=== PATIENT | female | born 1965 | race Caucasian/White ===

== ENCOUNTER → 2022-11-06 14:21 | Outpatient (CLI) | payer OTHER, MEDICAID, SELFPAY ==
--- NOTE | 2022-11-06 14:23 | DI.RAD.S_ITS ---
PROCEDURE: XR KNEE LT 3V INDICATIONS: bilateral knee and right shoulder pain TECHNIQUE: 3 views of the knee were acquired. COMPARISON: None. FINDINGS: Bones: No fractures or dislocations. Mild tricompartmental osteoarthritis is seen with joint space narrowing and subchondral sclerosis. No patellar subluxation. No suspicious bony lesions. Soft tissues: No joint effusion. No suspicious soft tissue calcifications. IMPRESSION: Mild tricompartmental osteoarthritis. No fracture or dislocation. No significant joint effusion. Dictated by: Corky Bulm M.D. on 11/06/2022 at 16:39 Approved by: Corky Blum M.D. on 11/06/2022 at 16:40
--- NOTE | 2022-11-06 14:23 | DI.RAD.S_ITS ---
PROCEDURE: XR SHOULDER RT MIN 2V INDICATIONS: bilateral knee and right shoulder pain TECHNIQUE: 3 views of the shoulder were acquired. COMPARISON: None. FINDINGS: Bones: No fractures or dislocations. Bqug-xo-ttjssdyh osteoarthritic changes are noted in acromioclavicular joint and glenohumeral joint with joint space narrowing and subchondral sclerosis. No suspicious bony lesions. Visualized ribs appear intact. Soft tissues: No suspicious soft tissue calcifications. IMPRESSION: Mild to moderate right shoulder joint osteoarthritis. No fracture or dislocation. No gross soft tissue abnormalities. Dictated by: Corky Blum M.D. on 11/06/2022 at 16:40 Approved by: Corky Blum M.D. on 11/06/2022 at 16:41
--- NOTE | 2022-11-06 14:23 | DI.RAD.S_ITS ---
PROCEDURE: XR KNEE RT 3V INDICATIONS: bilateral knee and right shoulder pain TECHNIQUE: 3 views of the knee were acquired. COMPARISON: None. FINDINGS: Bones: No fractures or dislocations. Mild tricompartmental osteoarthritis is seen more notably in medial femoral tibial compartment. No patellar subluxation. No suspicious bony lesions. Soft tissues: No joint effusion. No suspicious soft tissue calcifications. IMPRESSION: Mild tricompartmental osteoarthritis. No fracture or dislocation. No significant joint effusion. Dictated by: Corky Blum M.D. on 11/06/2022 at 16:39 Approved by: Corky Blum M.D. on 11/06/2022 at 16:39
== END ==
PROVIDERS: PCP Family Medicine; Referring Provider Family Medicine; Visit Provider Family Medicine
DX: M17.0 Bilateral primary osteoarthritis of knee (principal); M19.011 Primary osteoarthritis, right shoulder; M25.561 Pain in right knee; M25.562 Pain in left knee; M25.519 Pain in unspecified shoulder
CPT/HCPCS: 73030; 73562

== ENCOUNTER → 2023-05-19 13:44 | Outpatient (CLI) | payer OTHER, MEDICAID, SELFPAY ==
--- NOTE | 2023-05-19 14:17 | DI.RAD.S_ITS ---
PROCEDURE: XR LUMBAR SPINE 2-3V INDICATIONS: chronic spine pain TECHNIQUE: 3 views of the lumbar spine were acquired. COMPARISON: [facility], CT, CT ABDOMEN PELVIS WITH CONTRAST, 05/10/2018, 15:46. [facility], CR, XR LUMBAR SPINE WITH FLEXION EXTENSION 5 VIEWS, 05/17/2021, 13:27. FINDINGS: Bones: 5 ilp-rqo-jwnzzlb vertebrae are present. There is grade 1 anterolisthesis of L5 on S1 secondary to pars defects. No vertebral body compression fractures. No suspicious bony lesions. Degenerative disc disease, moderate at L5-S1, mild at other levels. There is moderate facet arthropathy at L4-L5 and L5-S1. Soft tissues: Overlying bowel gas pattern is normal. Atherosclerotic calcifications. IMPRESSION: 1. Multilevel degenerative disc and facet disease in lumbar spine. 2. Grade 1 anterolisthesis of L5 on S1 secondary to L5 pars defects. Dictated by: Mira Blanchard M.D. on 05/19/2023 at 15:16 Approved by: Mira Blanchard M.D. on 05/19/2023 at 15:21
--- NOTE | 2023-05-19 14:17 | DI.RAD.S_ITS ---
PROCEDURE: XR CERVICAL SPINE 2V OR 3V INDICATIONS: chronic spine pain TECHNIQUE: 3 view(s) of the cervical spine were acquired. COMPARISON: [facility], CR, XR CERVICAL SPINE FLEXION EXTENSION 3 VIEWS, 12/13/2021, 12:14. FINDINGS: Bones: No fractures or dislocations to the T7 level. The lateral masses of C1 appear intact on the odontoid view. No suspicious bony lesions. Discectomy and anterior fusion at C6-C7. Degenerative disc disease is present, moderate at C5-C6, and mild at other levels. Moderate bilateral facet arthropathy at C3-C4 and C4-C5 on the left. Soft tissues: No prevertebral soft tissue swelling. IMPRESSION: 1. Degenerative disc disease and facet arthropathy in cervical spine as described. 2. Discectomy and anterior fusion at C6-C7. Dictated by: Mira Blanchard M.D. on 05/19/2023 at 15:22 Approved by: Mira Blanchard M.D. on 05/19/2023 at 15:25
[2023-05-19 15:15] LABS: Add Manual Diff / Slide Review NO; Basophils Absolute Auto 0 /uL (0-100); Basophils Percent Auto 0.5 % (0-2); Eosinophils Absolute Auto 100 /uL (0-450); Eosinophils Percent Auto 1.7 % (2-4); Hematocrit 39.8 % (36-46); Hemoglobin 13.5 g/dL (12.0-16.0); Lymphocytes Absolute Auto 1700 /uL (1100-4500); Lymphocytes Percent Auto 22.7 % (25-40); Mean Corpuscular HGB Conc 33.9 % (30-36); Mean Corpuscular Hemoglobin 31.7 PG (26-34); Mean Corpuscular Volume 93.7 fL (80-100); Monocytes Absolute Auto 400 /uL (0-900); Monocytes Percent Auto 5.5 % (3-14); Neutrophils Absolute Auto 5100 /uL (1500-7000); Neutrophils Percent Auto 69.6 % (50-75); Platelet Count 160 X10^3/uL (150-400); Red Blood Cell Count 4.25 X10^6/uL (4.0-5.2); Red Cell Distribution Width 13.9 % (11.6-14.8); White Blood Cell Count 7.4 X10^3/uL (4.5-11.0)
[2023-05-19 15:43] LABS: Alanine Aminotransferase 15 IU/L (<35); Albumin 3.9 g/dL (3.5-5.0); Albumin Globulin Ratio 1.7 (1.0-2.8); Alkaline Phosphatase 50 U/L (38-126); Aspartate Aminotransferase 24 IU/L (14-36); Bilirubin Total 0.2 mg/dL (0.2-1.3); Blood Urea Nitrogen 13 mg/dL (7-17); Calcium 8.8 mg/dL (8.4-10.2); Carbon Dioxide 29 mmol/L (22-32); Chloride 103 mmol/L (98-107); Cholesterol 227 mg/dL (140-199); Estimated Glomerular Filt Rate > 60 mL/min (>60); Globulin 2.3 g/dL (1.7-4.1); Glucose 99 mg/dL (80-110); HDL Cholesterol 56 mg/dL (40-60); HEMOLYSIS < 15 (0-50); Potassium 4.3 mmol/L (3.4-5.1); Sodium 139 mmol/L (137-145); Total Protein 6.2 g/dL (6.3-8.2); Triglycerides 403 mg/dL (35-150)
[2023-05-19 16:05] LABS: TSH w/ Reflex to FT4 < 0.02 uIU/mL (0.47-4.68)
[2023-05-19 17:18] LABS: Free T4, Direct Thyroxine 1.18 ng/dL (0.78-2.19)
== END ==
PROVIDERS: PCP Family Medicine; Referring Provider Family Medicine; Visit Provider Family Medicine
DX: E03.9 Hypothyroidism, unspecified (principal); F17.200 Nicotine dependence, unspecified, uncomplicated; F32.A Depression, unspecified; F41.9 Anxiety disorder, unspecified; G89.29 Other chronic pain; G89.4 Chronic pain syndrome; J44.9 Chronic obstructive pulmonary disease, unspecified; M54.2 Cervicalgia; M54.9 Dorsalgia, unspecified; Z98.1 Arthrodesis status; F17.210 Nicotine dependence, cigarettes, uncomplicated; F31.9 Bipolar disorder, unspecified
CPT/HCPCS: 36415; 72040; 72100; 80053; 80061; 80305; 84439; 84443; 85025

== ENCOUNTER → 2023-07-04 13:48 | Outpatient (CLI) | payer OTHER, MEDICAID, SELFPAY ==
--- NOTE | 2023-07-04 13:50 | DI.MRI.S_ITS ---
PROCEDURE: MR LUMBAR SPINE WO CON INDICATIONS: Lumbar radiculopathy TECHNIQUE: Noncontrast sagittal T1 spin echo and T2 fast echo, sagittal STIR, and T2 fast spin echo through the lumbar spine. In cases with scoliosis, additional coronal T2 fast spin echo may be performed. COMPARISON: None. FINDINGS: Image quality: Excellent. Alignment and Curvature: Grade 1 anterolisthesis of L5 on S1. Bone Marrow: Partial ankylosis of the L5 and S1 vertebral bodies. Marrow is of normal overall signal. No acute vertebral body compression fractures. Spinal Cord: Conus medullaris terminates at the L1 level. Visualized cord demonstrates normal signal and size. Paraspinous Soft Tissues: No paravertebral masses. T12-L1: No central canal or neural foraminal stenosis. L1-L2: No central canal or neural foraminal stenosis. L2-L3: No central canal or neural foraminal stenosis. L3-L4: Disc desiccation. Minimal posterior disc bulge. Facet arthropathy and thickening of the ligamentum flavum. No central canal or neural foraminal stenosis. L4-L5: Disc desiccation. Facet arthropathy and thickening of the ligamentum flavum. No central canal or neural foraminal stenosis. L5-S1: Severe disc height loss and partial ankylosis of the L5 and S1 vertebral bodies. Facet arthropathy. Mild bilateral neural foraminal stenosis. No central canal stenosis. IMPRESSION: 1. Mild multilevel degenerative changes of the lumbar spine with grade 1 anterolisthesis of L5-S1 and partial ankylosis of the L5 and S1 vertebral bodies. 2. There is mild bilateral neural foraminal stenosis at L5-S1. 3. Otherwise, the central canal and neural are patent. Dictated by: Ney Patterson M.D. on 07/06/2023 at 9:54 Approved by: Ney Patterson M.D. on 07/06/2023 at 9:57
--- NOTE | 2023-07-04 13:50 | DI.MRI.S_ITS ---
PROCEDURE: MR CERVICAL SPINE WO CON INDICATIONS: Cervical radiculopathy, s/p ACDF TECHNIQUE: Noncontrast sagittal T1 spin echo and T2 fast spin echo, sagittal STIR, foraminal oblique sagittal T2 fast spin echo, and axial gradient echo or T2 fast spin echo through the cervical spine. COMPARISON: None. FINDINGS: Image quality: Excellent. Alignment and Curvature: There is normal bony alignment. Bone Marrow: Status post C6-C7 ACDF. Marrow demonstrates normal overall signal. Spinal Cord: Visualized spinal cord has normal size and signal. No cerebellar tonsillar herniation. Paraspinous Soft Tissues: No paravertebral masses. Prevertebral soft tissues are normal in thickness. C2-C3: Disc desiccation and minimal posterior disc bulge. No central canal or neural foraminal stenosis. C3-C4: Disc desiccation. No central canal stenosis. Facet and uncovertebral arthropathy. Mild left neural foraminal stenosis. No right neural foraminal stenosis. C4-C5: Disc desiccation and height loss with small central protrusion abutting the ventral cord. Mild central canal stenosis. Facet and uncovertebral arthropathy. Mild bilateral neural foraminal stenosis. C5-C6: Disc desiccation and height loss. No central canal stenosis. Facet and uncovertebral arthropathy. Moderate right and mild left neural foraminal stenosis. C6-C7: ACDF. No central canal stenosis. Facet and uncovertebral arthropathy. Mild left neural foraminal stenosis. No right neural foraminal stenosis. C7-T1: No central canal or neural foraminal stenosis. IMPRESSION: 1. Multilevel degenerative changes of the cervical spine status post C6-C7 ACDF. 2. Mild central canal stenosis at C4-C5. Otherwise, the central canal is patent. 3. Moderate right neural foraminal stenosis at C5-C6. Additional levels of mild neural foraminal stenosis as described above. Dictated by: Ney Patterson M.D. on 07/06/2023 at 9:48 Approved by: Ney Patterson M.D. on 07/06/2023 at 9:53
== END ==
PROVIDERS: PCP Family Medicine; Referring Provider Anesthesiology; Visit Provider Anesthesiology
DX: M54.12 Radiculopathy, cervical region (principal); Z98.1 Arthrodesis status; M54.9 Dorsalgia, unspecified; G89.29 Other chronic pain; M54.16 Radiculopathy, lumbar region; M43.16 Spondylolisthesis, lumbar region; M43.26 Fusion of spine, lumbar region; M48.061 Spinal stenosis, lumbar region without neurogenic claudication; M48.02 Spinal stenosis, cervical region
CPT/HCPCS: 72141; 72148

== ENCOUNTER 2023-09-09 13:39 | Outpatient (CLI) | payer OTHER, MEDICAID, SELFPAY ==
[2023-09-09] VITALS (9 sets, daily range): BP systolic 105–144; BP diastolic 73–87; PULSE 85–91; RESP 14–20; TEMP 35.8; O2SAT 94–100
[2023-09-09] MEDS: MIDAZOLAM 2 MG/2 ML VIAL 1 MG IV ×2 (14:23→14:25)
[2023-09-09] MEDS: DEXAMETHASONE 10 MG/ML VIAL INJ (14:27)
[2023-09-09] MEDS: iopamidoL 15 ML VIAL 3 ML INJ (14:28)
--- NOTE | 2023-09-09 14:30 | DI.RAD.S_ITS ---
PROCEDURE: PAIN C/T INTERLAMINAR INJECT INDICATIONS: Radiculopathy COMPARISON: None. FINDINGS: Fluoroscopic spot filming was performed to verify placement of spinal needles at the C7-T1 level(s), as labeled on the films. Appropriate location(s) of the needle tip(s) was confirmed by injection of iodinated contrast. IMPRESSION: Fluoroscopic guidance utilized for an epidural steroid injection at C7-T1. Dictated by: Ke Su M.D. on 09/09/2023 at 16:41 Approved by: Ke Su M.D. on 09/09/2023 at 16:42
--- NOTE | 2023-09-09 15:11 | DI.CT.S_ITS ---
PROCEDURE: CT LUNG LOW DOSE SCREENING INDICATIONS: smoking hx TECHNIQUE: Noncontrast 2.0-2.5 mm thick sections acquired from the pulmonary apices to the posterior costophrenic angles. 7 mm thick axial MIP, and 5 mm coronal and sagittal reformats were then acquired. For radiation dose reduction, the following was used: automated exposure control, adjustment of mA and/or kV according to patient size. COMPARISON: [facility], CT, CT ANGIO CHEST PE, 04/13/2019, 22:16. FINDINGS: Image quality: Diagnostic, given the low radiation dose technique. Lungs and pleura: There is mild centrilobular emphysema with an apical predominance. A spiculated mass within the right upper lobe which measures 1.5 x 0.8 cm is unchanged from the study dated April 13, 2019 and suggests pulmonary scarring. Atelectasis is present in the dependent portions of the right middle lobe. Platelike atelectasis or scar is redemonstrated at the left lung base. Mediastinum: Heart size is normal. No pericardial effusion. No mediastinal adenopathy by size criteria. Thoracic aorta and central pulmonary arteries are normal in size. Scattered atheromatous calcifications are present within the aortic arch. Esophagus is normal in caliber. No hiatal hernia. Bones and chest wall: No suspicious bony lesions. No vertebral body compression fractures. No axillary or supraclavicular adenopathy by size criteria. No thyroid nodules which require sonographic follow up, per consensus guidelines. Upper Abdomen: Visualized upper abdomen solid organs and bowel loops appear normal in the absence of contrast. IMPRESSION: 1. Stable pulmonary nodule within the right upper lobe when compared with the 2019 study. No new suspicious pulmonary nodules or acute airspace opacities. LUNG-RADS 2; continued annual screening, if eligible. Clinically Significant Non-pulmonary Findings: None. Dictated by: Erendira Gavin M.D. on 09/09/2023 at 15:49 Approved by: Erendira Gavin M.D. on 09/09/2023 at 15:53
--- NOTE | 2023-09-09 16:43 | P.PCN_ITS ---
Date/Time/Diagnoses Date of procedure: 09/09/23 Time of procedure: 14:30 Procedure Notes Physician: Renard Stockton Total Fluoroscopy time (seconds): 15 Total sedation minutes: 11 Procedure in detail & Post-procedure care: T1-2 Interlaminar Epidural Steroid Injection Indications: Esperanza is presenting for treatment of cervical radiculopathy with neck and arm pain. Decision made to perform the injection at the T1-2 level as opposed to the original order C7-T1 due to inability to visualize that space due to cervical fusion hardware. Preoperative diagnosis: Cervical radiculopathy Postoperative diagnosis: Same Focused Examination: Ax3 Mood and affect are normal Vital Signs: VSS ASA: 2 Consent: Following review of allergies and potential side effects/complications, including, but not necessarily limited to, infection, allergic reaction, local tissue breakdown, stroke, temporary or permanent nerve injury, paralysis, and possible , the patient indicated that they understood and agreed to proceed.? An informed consent document was signed by the patient, witnessed by a nurse and placed in the patient's chart.? Additionally, other treatment options including medications and physical therapy were reviewed with the patient. All questions were answered. Site was then marked. Anesthesia: After review of previous anesthetic history and IV conscious sedation, the patient was deemed safe to proceed with today's procedure with IV conscious sedation. IV sedation was accomplished with midazolam 2 mg administered by the RN after physician order. Sedation was titrated to patient comfort during the course of the procedure. Patient remained responsive to all verbal commands. Position: Prone Monitoring: NIBP, Pulse oximetry, 3 lead EKG Needle used: 18 G 3.5? Tuohy Contrast: Isovue 300-M 2 mL Injectate: Dexamethasone 10 mg followed by Normal Saline 2 mL Technique: The skin was prepped with chloraprep and then draped in a sterile fashion. Time out was performed as per protocol. Oxygen applied via NC. Skin and subcutaneous structures of the needle entry site was then infiltrated with 3 mL of lidocaine 1%. Under AP, lateral and contralateral oblique fluoroscopic control, the Tuohy needle was guided into the T1-2 epidural space. The space was accessed with loss of resistance technique. Isovue 300-M was then injected and the spread was consistent with the epidural space. There was no evidence for intravascular or intrathecal uptake. After negative aspiration, the above- mentioned injectate was then slowly administered and the needle withdrawn. The patient expressed no unusual discomfort or paresthesias during the injection. Band-Aids applied to injection sites. EBL: less than 1 ml Complications: None Post Procedure: Patient was taken to the recovery and monitored. The patient was provided a Pain Log to continue to record the patient's response to the target- specific procedure prior to the patient's follow-up visit with the referring physician. Patient was stable upon discharge. Detailed post procedure instructions were provided. Patient was asked to call in the event of worsening pain, fever, weakness, numbness or bladder or bowel incontinence.
== END 2023-09-09 15:01 | disposition home or self-care (01) ==
LOC: RAD 13:40
PROVIDERS: PCP Family Medicine; Referring Provider Anesthesiology; Visit Provider Anesthesiology
DX: M54.12 Radiculopathy, cervical region (principal); Z98.1 Arthrodesis status; Z12.2 Encounter for screening for malignant neoplasm of respiratory organs; R91.1 Solitary pulmonary nodule; F17.210 Nicotine dependence, cigarettes, uncomplicated
CPT/HCPCS: 62321; 71271; 99152; J1100; J2250

== ENCOUNTER → 2024-01-08 08:40 | Outpatient (CLI) | payer OTHER, MEDICAID, SELFPAY ==
--- NOTE | 2024-01-08 | DI.RAD.S_ITS ---
PROCEDURE: XR HIP W PEL IF DONE GWYN MIN 4V INDICATIONS: HIP PAIN TECHNIQUE: AP pelvis with lateral view(s) of each hip(s). COMPARISON: [facility], CR, XR PELVIS WITH BILATERAL LATERAL HIPS, 12/13/2021, 12:14. FINDINGS: Bones: No fractures or dislocations. Pelvic ring appears intact. No suspicious bony lesions. Mild symmetrical hip and sacroiliac joint degeneration bilaterally. Soft tissues: The visualized bowel gas pattern is normal. No suspicious soft tissue calcifications. There multiple surgical clips in pelvis. IMPRESSION: 1. No acute bony abnormality. 2. Mild degenerative joint disease. Dictated by: Mira Blanchard M.D. on 01/08/2024 at 10:55 Approved by: Mira Blanchard M.D. on 01/08/2024 at 10:58
[2024-01-08 09:58] LABS: Add Manual Diff / Slide Review NO; Basophils Absolute Auto 0 /uL (0-100); Basophils Percent Auto 0.6 % (0-2); Eosinophils Absolute Auto 100 /uL (0-450); Eosinophils Percent Auto 1.8 % (2-4); Hematocrit 41.1 % (36-46); Hemoglobin 13.6 g/dL (12.0-16.0); Lymphocytes Absolute Auto 1600 /uL (1100-4500); Lymphocytes Percent Auto 24.2 % (25-40); Mean Corpuscular HGB Conc 33.2 % (30-36); Mean Corpuscular Volume 96.4 fL (80-100); Monocytes Absolute Auto 500 /uL (0-900); Monocytes Percent Auto 7.4 % (3-14); Neutrophils Absolute Auto 4400 /uL (1500-7000); Platelet Count 138 X10^3/uL (150-400); Red Blood Cell Count 4.26 X10^6/uL (4.0-5.2); Red Cell Distribution Width 12.9 % (11.6-14.8); White Blood Cell Count 6.7 X10^3/uL (4.5-11.0)
[2024-01-08 10:30] LABS: Alanine Aminotransferase 19 IU/L (<35); Albumin 4.3 g/dL (3.5-5.0); Albumin Globulin Ratio 2.2 (1.0-2.8); Alkaline Phosphatase 57 U/L (38-126); Aspartate Aminotransferase 30 IU/L (14-36); BUN Creatinine Ratio 41.4 (6-22); Bilirubin Total 0.4 mg/dL (0.2-1.3); Blood Urea Nitrogen 24 mg/dL (7-17); Calcium 9.2 mg/dL (8.4-10.2); Carbon Dioxide 31 mmol/L (22-32); Chloride 106 mmol/L (98-107); Cholesterol 174 mg/dL (140-199); Estimated Glomerular Filt Rate > 60 mL/min (>60); Glucose 92 mg/dL (80-110); HDL Cholesterol 66 mg/dL (40-60); HEMOLYSIS < 15 (0-50); LDL Cholesterol Calculated 45 mg/dL (<100); Potassium 4.5 mmol/L (3.4-5.1); Sodium 141 mmol/L (137-145); Total Protein 6.3 g/dL (6.3-8.2); Triglycerides 313 mg/dL (35-150)
[2024-01-08 10:58] LABS: TSH w/ Reflex to FT4 2.54 uIU/mL (0.47-4.68)
[2024-01-08 11:08] LABS: Hep C Virus Ab w/Reflex Quant NEGATIVE s/c (NEGATIVE)
[2024-01-10 09:10] LABS: Apolipoprotein B 88 mg/dL (<90)
== END ==
PROVIDERS: PCP Family Medicine; Referring Provider Family Medicine; Visit Provider Family Medicine
DX: E78.1 Pure hyperglyceridemia (principal); E03.9 Hypothyroidism, unspecified; J44.9 Chronic obstructive pulmonary disease, unspecified; E78.5 Hyperlipidemia, unspecified; G89.4 Chronic pain syndrome; Z98.1 Arthrodesis status; F17.200 Nicotine dependence, unspecified, uncomplicated; M54.9 Dorsalgia, unspecified; G89.29 Other chronic pain; M54.2 Cervicalgia; M16.0 Bilateral primary osteoarthritis of hip
CPT/HCPCS: 36415; 73522; 80053; 80061; 82172; 84443; 85025; 86803

== ENCOUNTER → 2025-01-11 12:46 | Outpatient (CLI) | payer OTHER, SELFPAY ==
--- NOTE | 2025-01-11 13:07 | DI.MRI.S_ITS ---
PROCEDURE: MR HEAD/BRAIN WO/W CON INDICATIONS: short term memory loss TECHNIQUE: Noncontrast axial T1 spin echo, axial T2 fast spin echo, sagittal and axial FLAIR, coronal T2 fast spin echo, axial gradient echo, axial diffusion and ADC through the brain. After the administration of contrast, axial and coronal and sagittal T1 spin echo with fat saturation through the brain. COMPARISON: None. FINDINGS: Image quality: This examination is limited by involuntary motion artifact. CSF spaces: Basal cisterns are patent. No extra-axial fluid collections. Ventricles are normal in size and shape. Brain: Fvcw-sy-lzjhxspg generalized brain parenchymal volume loss is seen, without focal abnormal regional brain parenchymal volume loss. Idlo-ha-tmllwbor chronic small vessel ischemic change can be seen. No midline shift. No intracranial bleeds or masses. No abnormal intracranial enhancement. The brainstem appears normal. Diffusion-weighted images demonstrate no acute infarct. There is a remote infarct seen involving the deep white matter of the left frontal lobe, continuing into the left basal ganglia.. Normal intravascular flow voids are present. Skull and face: Calvarial marrow is normal in signal. Orbits appear normal. Incidental note is made of hyperostosis frontalis. This is not considered to be pathologic in a woman of this age. Sinuses: Sinuses and mastoids appear clear. IMPRESSION: Brain parenchymal volume loss and chronic small vessel ischemic change can be seen, which are somewhat worse than would be expected for a patient of this age. No findings of acute or subacute infarction can be seen. Remote infarct seen involving the deep white matter of the left frontal lobe, continuing into the left basal ganglia. No masses or abnormal enhancement can be seen. Dictated by: Ziggy Sykes M.D. on 01/14/2025 at 11:38 Approved by: Ziggy Sykes M.D. on 01/14/2025 at 11:40
== END ==
PROVIDERS: PCP Family Medicine; Referring Provider Family Medicine; Visit Provider Family Medicine
DX: R41.3 Other amnesia (principal); E03.9 Hypothyroidism, unspecified; M54.2 Cervicalgia; M54.9 Dorsalgia, unspecified; F17.200 Nicotine dependence, unspecified, uncomplicated; G89.4 Chronic pain syndrome
CPT/HCPCS: 70553; A9579

== ENCOUNTER → 2025-01-31 16:59 | Outpatient (CLI) | payer OTHER, SELFPAY ==
[2025-01-31 17:59] LABS: Add Manual Diff / Slide Review NO; Basophils Absolute Auto 0 /uL (0-100); Basophils Percent Auto 0.5 % (0-2); Eosinophils Absolute Auto 200 /uL (0-450); Eosinophils Percent Auto 2.4 % (2-4); Hematocrit 40.8 % (36-46); Hemoglobin 13.5 g/dL (12.0-16.0); Lymphocytes Absolute Auto 1700 /uL (1100-4500); Lymphocytes Percent Auto 25.5 % (25-40); Mean Corpuscular Hemoglobin 31.1 PG (26-34); Mean Corpuscular Volume 94.2 fL (80-100); Monocytes Absolute Auto 400 /uL (0-900); Monocytes Percent Auto 6.2 % (3-14); Neutrophils Absolute Auto 4400 /uL (1500-7000); Neutrophils Percent Auto 65.4 % (50-75); Platelet Count 147 X10^3/uL (150-400); Red Blood Cell Count 4.34 X10^6/uL (4.0-5.2); Red Cell Distribution Width 13.7 % (11.6-14.8); White Blood Cell Count 6.8 X10^3/uL (4.5-11.0)
[2025-01-31 18:28] LABS: Alanine Aminotransferase 21 IU/L (<35); Albumin 4.2 g/dL (3.5-5.0); Albumin Globulin Ratio 1.7 (1.0-2.8); Alkaline Phosphatase 65 U/L (38-126); Aspartate Aminotransferase 32 IU/L (14-36); BUN Creatinine Ratio 23.3 (6-22); Bilirubin Total 0.3 mg/dL (0.2-1.3); Blood Urea Nitrogen 14 mg/dL (7-17); Calcium 9.3 mg/dL (8.4-10.2); Carbon Dioxide 31 mmol/L (22-32); Chloride 101 mmol/L (98-107); Estimated Glomerular Filt Rate > 60 mL/min (>60); Globulin 2.5 g/dL (1.7-4.1); Glucose 94 mg/dL (70-99); HEMOLYSIS < 15 (0-50); Potassium 4.4 mmol/L (3.4-5.1); Sodium 138 mmol/L (137-145); Total Protein 6.7 g/dL (6.3-8.2)
[2025-01-31 19:05] LABS: Vitamin B12 915 pg/mL (239-931)
== END ==
PROVIDERS: PCP Family Medicine; Referring Provider Family Medicine; Visit Provider Family Medicine
DX: R41.3 Other amnesia (principal); E03.9 Hypothyroidism, unspecified; G89.4 Chronic pain syndrome; F17.200 Nicotine dependence, unspecified, uncomplicated; M54.9 Dorsalgia, unspecified; G89.29 Other chronic pain; M54.2 Cervicalgia
CPT/HCPCS: 36415; 80053; 82607; 84443; 85025

== ENCOUNTER → 2025-02-09 13:57 | Outpatient (CLI) | payer OTHER, SELFPAY ==
--- NOTE | 2025-02-09 13:58 | DI.US.S_ITS ---
PROCEDURE: US CAROTID DOPPLER BI INDICATIONS: history of stroke on MRI TECHNIQUE: Color and pulse Doppler interrogation was performed of both carotid systems, with image documentation and velocity measurements. COMPARISON: [facility], MR, MR HEAD/BRAIN WO/W CON, 01/11/2025, 12:58. FINDINGS: Stenosis calculations are based on SRU (Society of Radiologists in Ultrasound) criteria. The flow velocities and the arterial waveforms are normal within both carotid arterial systems. Mild atherosclerotic plaque is seen on both sides. The estimated degree of internal carotid artery stenosis is less than 50%. Antegrade flow is confirmed within both vertebral arteries. IMPRESSION: No hemodynamically significant stenosis is seen. Mild atherosclerotic plaque is noted bilaterally. Dictated by: Ziggy Sykes M.D. on 02/09/2025 at 14:26 Approved by: Ziggy Sykes M.D. on 02/09/2025 at 14:27
--- NOTE | 2025-02-09 13:58 | DI.ECHO.S_ITS ---
[facility] : : [id number] : [place] : : [id number] : : Phone: [phone] Echocardiogram Report + + :Name: JACKLYN SARGENT Study Date: 02/09/2025 Height: 61 in : [facility] ReadingLocation: Weight: 135 lb : : Gender: Female BSA: 1.6 m2 : :: 1965 Age: 59 yrs BP: 122/80 mmHg: :Reason For Study: STROKE : :Ordering Physician: CAMMIE, : :KADIE Performed By: Bernardo Sawant : :Referring: KADEI BONDS : + + Interpretation Summary 1) Normal left ventricular thickness, size, wall motion, and systolic function (EF 60-65%). 2) Normal right ventricular size and function. 3) No significant valvular abnormalities. 4) Injection of contrast documented no interatrial shunt. 5) Compared to the Echo done 04/14/2019, no significant change. Procedure: A two-dimensional transthoracic echocardiogram with color flow and Doppler was performed. A saline contrast injection was performed to assess for cardiac shunting. The study quality was technically good. Comparison is made with the echocardiogram of 04/14/2019. The patient was in normal sinus rhythm during the exam. Left Ventricle: The left ventricle is normal in size. There is normal left ventricular wall thickness. There is no ventricular septal defect visualized. The ejection fraction is estimated to be 60-65%. There are no focal wall motion abnormalities. Diastolic parameters suggest probable normal left ventricular diastolic function and normal filling pressures. Right Ventricle: The right ventricle is normal in size and function. Atria: The left atrial size is normal. Right atrial size is normal. There is no Doppler evidence for an interatrial shunt. Injection of contrast documented no interatrial shunt. Mitral Valve: The mitral valve leaflets appear normal. There is no evidence of stenosis, fluttering, or prolapse. There is trace mitral regurgitation. Aortic Valve: The aortic valve is mildly calcified. The aortic valve opens well. There is no aortic valve stenosis. No aortic regurgitation is present. Tricuspid Valve: The tricuspid valve leaflets are thin and pliable. No tricuspid regurgitation. Pulmonic Valve: The pulmonic valve leaflets are thin and pliable; valve motion is normal. There is no pulmonic valvular regurgitation. Great Vessels: The aortic root is normal size. The ascending aorta is at the upper limits of normal in size. The pulmonary artery is normal size. The IVC is of normal diameter and collapses greater than 50% with a sniff. This suggests a low right atrial pressure of 3 mm Hg. Pericardium/ Pleura There is no pericardial effusion. There is no pleural effusion. MMode/2D Measurements & Calculations LVIDd: 3.9 cm LVOT diam: 1.9 cm LVIDs: 2.9 cm Ao root diam: 3.3 cm FS: 26.8 % asc Aorta Diam: 3.3 cm EPSS: 0.55 cm Ao Arch Diam (Prox Trans): 1.6 cm IVSd: 0.93 cm LVPWd: 1.0 cm LV saul. diameter/BSA (cm/m^2): 2.4 LV sys. diameter/BSA (cm/m^2): 1.8 LA A2 area: 14.8 cm2 RA long axis: 4.0 cm LA A4 area: 12.3 cm2 RA area: 9.8 cm2 LA length (vol): 4.6 cm RA vol: 20.8 ml LA vol: 33.3 ml RA : 13.0 ml/m2 LA vol index: 20.8 ml/m2 IVC diam: 1.7 cm RVD1 (basal): 3.0 cm RVD2 (mid): 2.6 cm TAPSE: 2.1 cm Doppler Measurements & Calculations Ao V2 max: 110.2 cm/sec LVOT Max Sourav: 84.2 cm/sec Ao V2 mean: 72.7 cm/sec LV V1 max P.8 mmHg Ao max P.9 mmHg LV V1 VTI: 20.3 cm Ao mean P.3 mmHg SHANTE(I,D): 2.8 cm2 Ao V2 VTI: 21.8 cm SHANTE(V,D): 2.3 cm2 sev ratio: 0.93 SHANTE indexed to BSA (cm^2/m^2): 1.7 MV E max sourav: 89.6 cm/sec PA V2 max: 91.4 cm/sec MV A max sourav: 71.9 cm/sec PA V2 mean: 59.0 cm/sec MV E/A: 1.2 PA mean P.6 mmHg Med Peak E' Sourav: 7.5 cm/sec PA pr(Accel): 46.5 mmHg E/E' med: 11.9 Lat Peak E' Sourav: 9.1 cm/sec E/E' lat: 9.9 E/e' average: 10.9 MV dec time: 0.16 sec [facility] 60.5 ml Reading Physician:05:43 PM
== END ==
PROVIDERS: PCP Family Medicine; Referring Provider Family Medicine; Visit Provider Family Medicine
DX: I65.23 Occlusion and stenosis of bilateral carotid arteries (principal); I70.0 Atherosclerosis of aorta; Z86.73 Personal history of transient ischemic attack (TIA), and cerebral infarction without residual deficits
CPT/HCPCS: 93306; 93880

== ENCOUNTER → 2025-04-27 13:56 | Outpatient (CLI) | payer OTHER, SELFPAY ==
[2025-04-27 14:44] LABS: Add Manual Diff / Slide Review NO; Hematocrit 43.7 % (36-46); Hemoglobin 14.8 g/dL (12.0-16.0); Lymphocytes Absolute Auto 1700 /uL (1100-4500); Mean Corpuscular HGB Conc 33.9 % (30-36); Mean Corpuscular Hemoglobin 32.3 PG (26-34); Mean Corpuscular Volume 95.0 fL (80-100); Platelet Count 149 X10^3/uL (150-400)
[2025-04-27 15:39] LABS: Alanine Aminotransferase 29 IU/L (<35); Albumin 4.6 g/dL (3.5-5.0); Albumin Globulin Ratio 1.8 (1.0-2.8); Alkaline Phosphatase 67 U/L (38-126); Blood Urea Nitrogen 14 mg/dL (7-17); Calcium 9.9 mg/dL (8.4-10.2); Carbon Dioxide 29 mmol/L (22-32); Chloride 102 mmol/L (98-107); Cholesterol 201 mg/dL (140-199); Estimated Glomerular Filt Rate > 60 mL/min (>60); Globulin 2.5 g/dL (1.7-4.1); Glucose 99 mg/dL (70-99); HDL Cholesterol 103 mg/dL (40-60); HEMOLYSIS < 15 (0-50); Potassium 5.0 mmol/L (3.4-5.1); Sodium 142 mmol/L (137-145); Total Protein 7.1 g/dL (6.3-8.2); Triglycerides 255 mg/dL (35-150)
[2025-04-27 16:10] LABS: TSH w/ Reflex to FT4 0.76 uIU/mL (0.47-4.68)
== END ==
PROVIDERS: PCP Family Medicine; Referring Provider Family Medicine; Visit Provider Family Medicine
DX: E78.1 Pure hyperglyceridemia (principal); E03.9 Hypothyroidism, unspecified; G89.4 Chronic pain syndrome; Z98.1 Arthrodesis status; M67.431 Ganglion, right wrist; J44.9 Chronic obstructive pulmonary disease, unspecified
CPT/HCPCS: 36415; 80053; 80061; 82172; 84443; 85025